=== PATIENT | female | born 1985 | race Caucasian/White ===

== ENCOUNTER 2025-04-23 20:34 | Inpatient (IN) | payer BC ==
[~2025-04-23 20:34] MED LIST: Iopamidol-370 76% 500 ML MDV (1 ML CHARGE) ONE
[2025-04-23 21:37] LABS: #Basophils 0.04 10x3/uL (0.0-0.2); #Eosinophils 0.35 10x3/uL (0.0-0.7); #Monocytes 0.45 10x3/uL (0.11-0.59); #Neutrophils 6.13 10x3/uL (1.40-6.50); %Basophils 0.4 % (0.0-1.0); %Eosinophils 3.5 % (0.0-10.0); %Lymphocytes 29.6 % (21.0-51.0); %Monocytes 4.5 % (0.0-10.0); %Neutrophils 61.7 % (42.0-75.0); Hematocrit 39.2 % (36.0-47.0); Hemoglobin 12.9 g/dL (12.0-16.0); Mean Corpuscular Hemoglobin 29.5 pg (27.0-31.0); Mean Corpuscular Volume 89.7 fL (78.0-98.0); Platelet Count 166 10x3/uL (130-400); Red Blood Cell (RBC) Count 4.37 mill/uL (4.20-5.40); White Blood Cell (WBC) Count 9.95 10x3/uL (4.8-10.8)
[2025-04-23 21:43] LABS: INR-International Normal Ratio 1.0; Prothrombin Time 13.2 sec (12.0-14.7)
[2025-04-23 21:44] LABS: PTT 27.1 sec (22.9-36.1)
[2025-04-23 21:54] LABS: ALT (SGPT) 16 U/L (Less than 34); AST (SGOT) 20 U/L (11-34); Albumin 3.6 g/dL (3.1-4.5); Alkaline Phosphatase 81 U/L (40-110); Anion Gap 16 mmol/L (10-20); BHCG - Serum Negative (NEGATIVE); BUN (Urea Nitrogen) 11 mg/dL (7.0-18.7); Bilirubin, Total 0.3 mg/dL (0.3-1.2); Calc. Creatinine Clearance 0 mL/min (70-130); Calcium 9.2 mg/dL (7.8-10.44); Carbon Dioxide 22 mmol/L (22-29); Chloride 103 mmol/L (98-107); Globulin 3.2 g/dL (2.4-3.5); Glucose 278 mg/dL (70-105); Magnesium 1.7 mg/dL (1.6-2.6); Potassium 3.5 mmol/L (3.5-5.1); Pregs Control Background? CLEAR/WHITE (CLR/WHITE); Pregs Control Bar Appear? YES (CONTROL BAR); Sodium 137 mmol/L (136-145)
[2025-04-24] MEDS ORDERED: Acetaminophen 500 MG TAB ONE (00:40)
[2025-04-24] MEDS ORDERED: Acetaminophen 325 MG TAB PO PRN (00:58)
[2025-04-24] MEDS ORDERED: Ondansetron PF 4 MG/2 ML Vial IVP PRN (00:58)
[2025-04-24] MEDS ORDERED: Glucagon 1 MG/ML KIT IM PRN (01:02)
[2025-04-24] MEDS ORDERED: Dextrose 50% Abboject 50 ML SYRINGE SLOW IVP PRN (01:02)
[2025-04-24 03:00] VITALS: BMI 54.3
[2025-04-24] MEDS: Aspirin Chewable 81 MG TAB PO SCH (03:01)
[2025-04-24 03:58] LABS: #Basophils 0.06 10x3/uL (0.0-0.2); #Eosinophils 0.41 10x3/uL (0.0-0.7); #Monocytes 0.62 10x3/uL (0.11-0.59); #Neutrophils 5.76 10x3/uL (1.40-6.50); %Basophils 0.5 % (0.0-1.0); %Eosinophils 3.7 % (0.0-10.0); %Lymphocytes 37.9 % (21.0-51.0); %Monocytes 5.6 % (0.0-10.0); %Neutrophils 51.9 % (42.0-75.0); Hematocrit 37.9 % (36.0-47.0); Hemoglobin 12.4 g/dL (12.0-16.0); Mean Corpuscular Hemoglobin 29.1 pg (27.0-31.0); Mean Corpuscular Volume 89.0 fL (78.0-98.0); Platelet Count 200 10x3/uL (130-400); Red Blood Cell (RBC) Count 4.26 mill/uL (4.20-5.40); White Blood Cell (WBC) Count 11.10 10x3/uL (4.8-10.8)
[2025-04-24 04:20] LABS: Cocaine Metabolite Screen Negative (Negative); THC/Cannabinoid Screen Negative (Negative); Tricyclic Screen Negative (Negative)
[2025-04-24 04:59] LABS: ALT (SGPT) 17 U/L (Less than 34); AST (SGOT) 25 U/L (11-34); Albumin 3.4 g/dL (3.1-4.5); Alkaline Phosphatase 78 U/L (40-110); Anion Gap 13 mmol/L (10-20); BUN (Urea Nitrogen) 10 mg/dL (7.0-18.7); Bilirubin, Total 0.6 mg/dL (0.3-1.2); Calc. Creatinine Clearance 258 mL/min (70-130); Calcium 9.4 mg/dL (7.8-10.44); Carbon Dioxide 25 mmol/L (22-29); Cardiac Risk 4.8 (Less than 4.5); Chloride 101 mmol/L (98-107); Cholesterol 174 mg/dl (< 200 Desired); Globulin 3.5 g/dL (2.4-3.5); Glucose 194 mg/dL (70-105); HDL Cholesterol 36 mg/dL (>60 Neg Risk); LDL Cholesterol, Calculated 92 mg/dL; Potassium 3.7 mmol/L (3.5-5.1); Sodium 135 mmol/L (136-145); Triglycerides 228 mg/dL (Less than 150)
[2025-04-24] MEDS: Famotidine 20 MG TAB PO SCH (08:39)
[2025-04-24] MEDS: Enoxaparin 40 MG (0.4 mL) SYRINGE SC SCH (08:39)
[2025-04-24] MEDS: Aspirin 81 mg Enteric Coated Tablet PO SCH (08:39)
[2025-04-24] MEDS: Famotidine/PF 20 mg/2ml Vial SLOW IVP SCH (13:51)
[2025-04-24] MEDS ORDERED: Electrolyte Replacement Protocol 1 EACH FS SCH (14:28)
[2025-04-24] MEDS: Magnesium Oxide 400 MG TAB PO SCH (21:27)
[2025-04-24] MEDS: Multivit, Therapeutic 1 TAB PO SCH (21:27)
[2025-04-25] MEDS: Magnesium 2 GM/50 ML(in water) 2 GM in Premix 1 BAG IVPB SCH (12:33)
[2025-04-26 08:31] VITALS: TEMP 98
[2025-04-26 13:00] VITALS: BP 136/78
== END 2025-04-26 12:55 | disposition home or self-care (01) | DRG 69 ==
LOC: ERS 20:34 → 2SE 04-24 01:02 → OBSVTOIN 04-25 09:08
PROVIDERS: ADMIT Internal Medicine; ATTEND Internal Medicine
DX: G45.9 Transient cerebral ischemic attack, unspecified (principal); E66.2 Morbid (severe) obesity with alveolar hypoventilation; Z68.43 Body mass index [BMI] 50.0-59.9, adult; E87.1 Hypo-osmolality and hyponatremia; E11.9 Type 2 diabetes mellitus without complications; R47.81 Slurred speech; Z79.4 Long term (current) use of insulin; E83.42 Hypomagnesemia; E78.5 Hyperlipidemia, unspecified; H54.7 Unspecified visual loss; I44.1 Atrioventricular block, second degree
CPT/HCPCS: 36415; 36416; 70496; 70498; 70551; 71045; 80053; 80061; 80306; 83036; 83735; 84484; 84703; 85025; 85610; 85730; 87081; 93005; 93010; 93306; 96372; G0378; J1650; J1815; J3475; Q9967